=== PATIENT | female | born 2000 | race Caucasian/White ===

== ENCOUNTER 2023-10-14 09:59 | Outpatient (CLI) | payer OTHER ==
[~2023-10-14] VITALS: Ht 165.1 cm; Wt 67.4 kg
[2023-10-14 10:18] VITALS: BP 130/73; O2SAT 100
[2023-10-14] MEDS ORDERED: PRENTAB9 PO (10:22)
[2023-10-14] MEDS ORDERED: HOME MED LIST COMPLETE! XX SCH (10:35)
[2023-10-14 10:50] LABS: HEMATOCRIT 32.7 % (36.0-47.0); HEMOGLOBIN 10.8 g/dl (12.0-15.5); MEAN CORPUSCULAR HEMOGLOBIN 30.4 pg (27.0-33.0); MEAN CORPUSCULAR VOLUME 92.1 fl (80.0-96.0); PLATELET COUNT, AUTOMATED 206 10^3/uL (150-450); RED BLOOD COUNT 3.55 10^6/uL (4.00-5.40); WHITE BLOOD COUNT 17.5 10^3/uL (4.0-10.0)
[2023-10-14 11:17] LABS: LIPASE 43 U/L (12-53)
[2023-10-14 11:20] LABS: ALBUMIN 2.8 G/DL (3.2-5.2); ALKALINE PHOSPHATASE 58 U/L (46-116); ALT/SGPT 9 U/L (7.0-40); AST/SGOT 9 U/L (<34); BILIRUBIN,TOTAL 0.4 MG/DL (0.3-1.2); BLOOD UREA NITROGEN 6 MG/DL (9-23); CALCIUM LEVEL 8.1 MG/DL (8.5-10.1); CARBON DIOXIDE LEVEL 23 MMOL/L (20-31); CHLORIDE LEVEL 110 MMOL/L (98-107); CREATININE FOR GFR 0.42 MG/DL (0.55-1.30); GLOMERULAR FILTRATION RATE > 60.0 (>60); GLUCOSE, FASTING 89 MG/DL (60-100); POTASSIUM SERUM 4.2 MMOL/L (3.5-5.1); SODIUM LEVEL 139 MMOL/L (136-145); TOTAL PROTEIN 5.8 G/DL (5.7-8.2)
[2023-10-14] MEDS: DESVENLAFAXINE ER 50MG TABLET (PRISTIQ) PO ONE (12:18)
[2023-10-15] MEDS ORDERED: DESV50TA PO (09:19)
[2023-10-15] MEDS ORDERED: HOLTER MONITOR XX (11:47)
== END 2023-10-14 12:32 ==
LOC: M LDO 09:59
PROVIDERS: ATTEND Obstetrics & Gynecology
DX: O21.2 Late vomiting of pregnancy (principal); Z3A.23 23 weeks gestation of pregnancy; O99.343 Other mental disorders complicating pregnancy, third trimester; F41.9 Anxiety disorder, unspecified; Z63.5 Disruption of family by separation and divorce; Z79.899 Other long term (current) drug therapy
CPT/HCPCS: 36415; 59025; 76815; 80053; 83690; 85027; G0463

== ENCOUNTER 2023-10-15 08:54 | Emergency (ER) | payer OTHER ==
[~2023-10-15] VITALS: Ht 165.1 cm; Wt 68.1 kg
[~2023-10-15 08:54] MED LIST changes: -DESV50TA PO; -HOLTER MONITOR XX
[2023-10-15] MEDS ORDERED: DESV50TA PO (09:19)
[2023-10-15 09:46] LABS: BASO % 0.2 % (0.0-1.0); EOS # 0.1 10^3/uL (0.0-0.5); EOS % 0.5 % (0.0-3.0); HEMATOCRIT 32.1 % (36.0-47.0); HEMOGLOBIN 10.6 g/dl (12.0-15.5); LYMPH # 1.5 10^3/uL (1.5-5.0); LYMPH % 10.9 % (24.0-44.0); MEAN CORPUSCULAR HEMOGLOBIN 30.3 pg (27.0-33.0); MEAN CORPUSCULAR VOLUME 91.7 fl (80.0-96.0); MONO # 0.6 10^3/uL (0.0-0.8); MONO % 4.3 % (2.0-8.0); NEUTROPHILS # 11.4 10^3/uL (1.5-8.5); NEUTROPHILS % 83.6 % (36.0-66.0); PLATELET COUNT, AUTOMATED 198 10^3/uL (150-450); WHITE BLOOD COUNT 13.6 10^3/uL (4.0-10.0)
[2023-10-15 10:11] LABS: BLOOD UREA NITROGEN 7 MG/DL (9-23); CARBON DIOXIDE LEVEL 22 MMOL/L (20-31); CHLORIDE LEVEL 108 MMOL/L (98-107); CREATININE FOR GFR 0.45 MG/DL (0.55-1.30); GLOMERULAR FILTRATION RATE > 60.0 (>60); GLUCOSE, FASTING 78 MG/DL (60-100); SODIUM LEVEL 138 MMOL/L (136-145)
[2023-10-15 11:45] VITALS: BP 109/67; TEMP 98.1; O2SAT 100
[2023-10-15] MEDS ORDERED: HOLTER MONITOR XX (11:47)
== END 2023-10-15 12:08 | disposition home or self-care (01) ==
LOC: EDBD 08:54 → M ED 08:54
DX: R55 Syncope and collapse (principal); O99.342 Other mental disorders complicating pregnancy, second trimester

== ENCOUNTER → 2023-10-15 | Outpatient (CLI) | payer OTHER ==
[~2023-10-15] MED LIST: DESV50TA PO; HOLTER MONITOR XX; PRENTAB9 PO
== END ==
LOC: M EKG 12:22
PROVIDERS: ATTEND Emergency Medicine
DX: R55 Syncope and collapse (principal); R00.0 Tachycardia, unspecified